=== PATIENT | female | born 1975 | race Caucasian/White ===

== ENCOUNTER → 2019-08-15 | Outpatient (CLI) | payer OTHER ==
--- NOTE | 2019-08-18 17:06 | PATH ---
[facility] [place] [address] PATHOLOGY RPT PROCEDURE Name: HILDA CISNEROS Room #: REG [facility] M.R.#: [id number] Admission: 08/15/19 Date of : 75 Discharge: Report #: [id number] Path Case #: [id number] [facility] Accession Number: [id number] . 01 Material submitted: . lymph node - RIGHT LATERAL NECK LYMPH NODE. Modifiers: right, lateral, neck . 01 Clinical history: . Enlarged lymph nodes . 02 Diagnosis: Lymph node, neck, needle core biopsy: - Lymphoid tissue with mild acute lymphadenitis, occasional reactive follicles and sinus histiocytosis. Please see comment. (ELICIA:naseem; 08/17/2019) . . Special studies report received from [facility], [address] [place] [address], [address], [place], [address], on case [id number], labeled with their number [id number], dated 08/17/2019. . Flow Cytometry: Hematologic Neoplasia Assessment . Clinical History Enlarged lymph nodes, unspecified . Indication for Study Evaluation for hematolymphoid neoplasia . Specimen Lymph node, right lateral neck . Viability 88% (7AAD exclusion) . Interpretation Lymph node, right lateral neck: No significant lymphoid immunophenotypic abnormalities detected . Comments There are no significant immunophenotypic abnormalities in this specimen. It is of note that non- hematolymphoid neoplasms, Hodgkin lymphoma, some T-cell lymphomas and some large cell lymphomas cannot be totally excluded based solely on flow cytometry analysis. Correlation with available clinical, laboratory, and morphologic data is recommended. . Populations Analyzed Lymphocytes: 83% B-cells: 17.9%, polytypic/polyclonal sIg light chain [address] [address] PATHOLOGY RPT PROCEDURE Name: HILDA CISNEROS Room #: REG [facility].#: [id number] Admission: 08/15/19 Date of : 75 Discharge: Report #: [id number] Path Case #: [id number] pattern T-cells: no significant abnormalities of the markers tested CD4:CD8: 4.4 NK cells: 0.8% Granulocytes: 2% Present CD45 Negative 15% No significant reactivity with the markers tested Events/Debris: (may represent non-hematolymphoid cells, degenerated cells, debris, unlysed red blood cells, etc.) . Morphologic Evaluation A slide was reviewed for customer quality engineer purposes only. . Specimen Description Cell Yield: 0.42x10 and 6 . Reagent(s) Used CD2, CD3, CD4, CD5, CD7, CD8, CD10, CD11b, CD19, CD20, CD23, CD30, CD38, CD43, CD45, CD56, CD57, FMC-7, HLA-DR, kappa, lambda . at [facility] [employer] Lena Funes MD Pathologist . . Intended Use Flow cytometry is optimally used to immunophenotypically characterize abnormal populations when they are detected. Negative flow cytometry results do not exclude lymphoma or neoplasia. Possible false negative flow cytometry results may occur in, but are not limited to, the following: neoplastic cells in Hodgkin lymphoma are not typically adequately represented by routine clinical flow cytometry; neoplastic cells may be lost or inadequately represented due to degeneration, sample processing, sampling artifact, or patchy involvement; plasma cells are typically underrepresented by flow cytometry; immature cells/blasts may be underrepresented due to hemodilution; myeloproliferative disorders and low grade myelodysplasia may not have immunophenotypic abnormalities or increased blasts. Correlation with all available clinical, laboratory, and morphologic data is always necessary to assess for the possibility of false negative flow cytometry results and to establish a diagnosis. Each marker in this analysis was used to assess for potential antigenic abnormalities or to evaluate detected abnormalities. . Disclaimer(s) This test was performed at [facility]. at [address] [place] [address], [id number] - Slicing Machine Tender: Boston Banks MD. [address] [address] PATHOLOGY RPT PROCEDURE Name: NANDOHILDA [id number] Admission: 08/15/19 Date of : 75 Discharge: Report #: [id number] Path Case #: [id number] [facility] is a business unit of [employer] a wholly-owned subsidiary of [employer]. . Any image or images that accompany this report are medical office representative images only and should not be used to render a diagnosis. . This test was developed and its performance characteristics determined by [facility]. It has not been cleared or approved by the Food and Drug Administration (FDA). The FDA has determined that such clearance or approval is not necessary. . For inquiries, the physician may contact Lab: [phone] . A complete copy of the report is on file. . Professional services performed by [facility]. at [address], [place] [address]. Technical services performed by [facility] at [address], [place] [address]. . (IUV:amj 08/17/2019) . [place] 08/17/2019 1615 Local . 02 Comment: Examination of the neck lymph node needle core biopsy shows lymphoid tissue with mild acute lymphadenitis, occasional reactive follicles and sinus histiocytosis. Definite Damien-Aj cells, metastatic carcinoma or granulomas are not identified. Immunophenotypic studies by flow cytometry do not show significant lymphoid abnormalities (please see separate flow cytometry report from [facility], specimen ID [id number]). . The findings may suggest benign reactive lymph node. However, it should be noted that partially involved lymph nodes by malignancy or Hodgkin lymphoma in a background of reactive hyperplasia cannot be totally excluded with the sampling artifact. Excision of the lymph node is recommended if clinically suspicious. . Co-review: Dr. Ashlee Tate. . (ELICIA:naseem; 08/17/2019) . 02 Electronically signed: . Stephy Ash MD, Pathologist NPI- [id number] [address] [address] PATHOLOGY RPT PROCEDURE Name: HILDA CISNEROS Room #: REG [facility] M.R.#: [id number] Admission: 08/15/19 Date of : 75 Discharge: Report #: [id number] Path Case #: [id number] . 01 Gross description: . Received in formalin labeled "Hilda Cisneros, right lateral neck lymph node," are multiple fragments of needle cores of ocampo soft tissue measuring 0.9 x 0.3 x 0.1 cm in aggregate dimensions. The specimen is filtered and entirely submitted in cassette A1. A part of the specimen has been submitted in RPMI solution and is forwarded to flow cytometry studies. (TSD; 08/15/2019) TOB/TOB 08/15/2019 1649 Local . 02 Pathologist provided ICD-10: R59.9, I88.9 . 02 CPT . 140556 Specimen Comment: A courtesy copy of this report has been sent to Specimen Comment: [phone]. Specimen Comment: Report sent to Performed at: 01 [facility] [address], [place], [place] [id number] MD Yariel Timmons MD Phone: [phone] Performed at: 02 [facility] [address] [address] [id number] MD Stephy Ash MD Phone: [phone]
== END | disposition home or self-care (01) ==
LOC: ULTRA 09:05
DX: I88.9 Nonspecific lymphadenitis, unspecified (principal); D76.3 Other histiocytosis syndromes